=== PATIENT | male | born 1990 | race Two or more races ===

== ENCOUNTER 2017-10-15 12:06 | Emergency (ER) | payer MEDICAID ==
[~2017-10-15] VITALS: Ht 172.7 cm; Wt 74.4 kg
[~2017-10-15 12:06] MED LIST: NORCO 5-325 TA1 EACH ORAL
[2017-10-15 12:19] VITALS: BP 117/69
[2017-10-15] MEDS ORDERED: Norco 5mg/325mg tab ORAL ONE (12:30)
[2017-10-15] MEDS ORDERED: IBUPROFEN600 MG ORAL (12:38)
--- NOTE | 2017-10-15 12:40 | Emergency Room Report ---
History of Present Illness General Chief Complaint: Upper Extremity Injury Source: Patient Present Illness HPI 27-year-old male patient presents ER complaining of left shoulder pain for the past few days. Reports dislocated his shoulder and fractured his humerus, was seen at [facility] 8 days ago, discoloration was reduced. was seen later at [facility] for [place], given [place], competed full course of medication. was referred to ortho specialist by [facility] but was unable to be seen by orthopedics surgeon referred by [facility] because did not get referral from primary care provider, awaiting referral at this time and appointment with PCP. has not followed up with orthopedic urgent care recommended to him at previous visit to [facility]. Denies injury or trauma since initial injury. Requesting pain medication. Allergies: Coded Allergies: No Known Allergies (Unverified , 10/10/17) Patient History Past Medical History: see triage record Reviewed Nursing Documentation: PMH: Agreed; PSxH: Agreed Nursing Documentation-PMH Past Medical History: No Stated History Review of Systems All Other Systems: negative except mentioned in HPI Physical Exam Vital Signs Date Time Temp Pulse Resp B/P (MAP) Pulse Ox O2 Delivery O2 Flow Rate FiO2 10/15/17 12:11 97.9 73 18 117/69 98 Room Air 97.9 Sp02 EP Interpretation: reviewed, normal General Appearance: well appearing, no apparent distress, alert, GCS 15, non- toxic Head: normocephalic, atraumatic Eyes: bilateral eye normal inspection, bilateral eye PERRL ENT: hearing grossly normal, normal pharynx, no angioedema, normal voice, uvula midline, moist mucus membranes Neck: full range of motion Respiratory: lungs clear, normal breath sounds, no rhonchi, no respiratory distress, no accessory muscle use, no wheezing, speaking full sentences Cardiovascular #1: regular rate, rhythm, no edema Cardiovascular #2: 2+ radial (R), 2+ radial (L) Gastrointestinal: non tender, soft, no mass, non-distended, no guarding, no rebound Genitourinary: no CVA tenderness Musculoskeletal: back normal, digits/nails normal, gait/station normal, normal range of motion, non-tender, other - NVI, negative sulcus, negative skin tenting , NVI, axillary nerve, AIN, PIN and, radial nerve intact, no wrist drop Neurologic: alert, oriented x3, responsive, motor strength/tone normal, sensory intact Psychiatric: mood/affect normal Skin: no rash Lymphatic: no adenopathy Medical Decision Making PA Attestation Dr. Morton is my supervising Physician whom patient management has been discussed with. Diagnostic Impression: Primary Impression: Shoulder pain ER Course Pt. presents to the ED c/o left shoulder pain. Ddx considered but are not limited to fracture, sprain, strain, contusion, dislocation. No erythema, no warmth to touch, no fever, nontoxic appearing, low suspicion for septic joint. Vital signs: are WNL, pt. is afebrile ER COURSE no recent injury or trauma, patient still in shoulder splint, negative sulcus sign, negative skin tenting, no erythema or edema, does not require repeat imaging at this time. Informed patient that pain may continue, needs Ortho follow-up, follow-up with orthopedic urgent care today. Provided with pain medication. CURES reviewed. patient took Lyft to the ER, will provide [place] in the ER, instructed to take Ibuprofen for pain, f/u with ortho and pain management. patient resting comfortably, in no acute distress. Informed patient will not provide further opioid drug medication. patient currently in arm sling, no recent injury or trauma, negative sulcus sign , NVI, no skin tenting, does not require repeat imaging at this instructed to follow-up with ortho urgent care. Informed patient needs to discuss removal of arm sling with ortho specialist. Patient instructed on RICE method: rest, ice, compression, elevation. Patient instructed on rest, ice and heat. Patient instructed to be NWB Contact information for orthopedic urgent care provided, follow-up with urgent care if unable to followup with primary care provider and get referral to pulmonary disease specialist. Followup with primary care provider. Discuss referral to ortho/pain management/ PT as needed. Discuss further imaging with MRI/CT as needed. DISCHARGE: -Rx provided for Ibuprofen for pain symptoms. At this time pt. is stable for d/c to home. Patient is resting comfortably, in no acute distress, nontoxic appearing, talking without difficulty. Will provide printed patient care instructions, and any necessary prescriptions. Patient instructed to follow with primary care provider in 3 - 5 days and to request further follow-up as needed. Care plan and follow up instructions have been discussed with the patient prior to discharge. Take medications as directed. Patient questions asked and answered. Patient reports understanding and agreement to treatment plan. ER precautions given, patient instructed to return to ER immediately for any new or worsening of symptoms. - Please note that this Emergency Department Report was dictated using [employer] irrigation worker technology software, occasionally this can lead to erroneous entry secondary to interpretation by the dictation equipment. Last Vital Signs Date Time Temp Pulse Resp B/P (MAP) Pulse Ox O2 Delivery O2 Flow Rate FiO2 10/15/17 12:19 97.9 18 117/69 98 Room Air 97.9 10/15/17 12:11 73 Disposition: HOME, SELF-CARE Condition: Stable Scripts Ibuprofen* (MOTRIN*) 600 Mg Tablet 600 MG ORAL Q8H PRN for For Pain, #30 TAB 0 Refills Prov: Deven Hodge 10/15/17 Patient Instructions: Humerus Fracture Treated With Immobilization, Easy-to- Read, Shoulder Dislocation, [id number] Additional Instructions: Patient instructed to follow up with primary care provider and discuss further referral to orthopedics. Patient instructed on RICE method: rest, ice, compression, elevation. Patient instructed to NWB. Take medications as directed. Patient questions asked and answered. ER precautions given, patient instructed to return to ER immediately for any new or worsening of symptoms. Deven Hodge Oct 15, 2017 12:40
[2017-10-15 12:49] VITALS: BP 117/69
== END 2017-10-15 12:50 | disposition home or self-care (01) ==
LOC: EMR 12:38
DX: M25.512 Pain in left shoulder (principal)
CPT/HCPCS: 99282